=== PATIENT | male | born 1955 | race Caucasian/White ===

== ENCOUNTER 2021-04-24 18:17 | Inpatient (IN) | payer OTHER ==
[2021-04-24] MEDS ORDERED: METHYLPREDNISOLONE 125 MG INJ ONE (19:20)
[2021-04-24] MEDS ORDERED: METOPROLOL TARTRATE 5 MG/5 ML INJ IV ONE ×2 (19:20→20:17)
[2021-04-24 19:27] LABS: Albumin 2.6 g/dL (3.4-5.0); Bilirubin Direct 0.2 mg/dL (0-0.2); Bilirubin Total 0.6 mg/dL (0.2-1.0); Ferritin 320.9 ng/mL (26-388); Potassium 3.6 mmol/L (3.5-5.1); Protein, Total 6.8 g/dL (6.4-8.2); Troponin (Emerg Dept Use Only) 0.07 ng/mL (0.0-0.045)
[2021-04-24 19:45] LABS: Absolute Lymphocytes (CBC) 0.4 K/uL (0.7-4.9); Basophils % 0.2 % (0-1.3); Hematocrit 35.8 % (39.6-49.0); Lymphocytes % 11.2 % (15.3-44.8); RBC Red Blood Cell Count 5.11 M/uL (4.33-5.43)
[2021-04-24 19:49] LABS: Protime INR 1.32
--- NOTE | 2021-04-24 19:56 | RAD REPORT ---
EXAM DESCRIPTION: RAD - Chest Single View - 04/24/2021 6:45 pm CLINICAL HISTORY: DYSPNEA, COVID positive, code sepsis COMPARISON: None TECHNIQUE: AP portable chest image was obtained 04/24/2021 6:45 pm . FINDINGS: Lung volumes are low. Airspace opacification scattered throughout both lung vazquez. Patter n is consistent with moderate severity COVID-19 pneumonia. Heart and vasculature are normal. No measu rable pleural effusion and no pneumothorax. No acute bony abnormality seen. No acute aortic findings suspected. IMPRESSION: Moderate severity bilateral COVID-19 pneumonia pattern.
--- NOTE | 2021-04-24 19:59 | P.HP ---
Certification for Inpatient Patient admitted to: Inpatient With expected LOS: >2 Midnights Patient will require the following post-hospital care: None Practitioner: I am a practitioner with admitting privileges, knowledge of patient current condition, hospital course, and medical plan of care. Services: Services provided to patient in accordance with Admission requirements found in Title 42 Section 412.3 of the Code of Federal Regulations Patient History Date of Service: 04/24/21 Primary Care Provider: Out of town Reason for admission: COVID-19 pneumonia History of Present Illness: 65-year-old male with history of diabetes mellitus type 2, hypertension, atrial fibrillation on chronic anticoagulation therapy presents emergency department for shortness of breath. Patient reports testing positive for Covid on 04/20/2021, received Regeneron yesterday at stand-alone emergency department. Patient with worsening shortness of breath found to be hypoxic on room air with saturations around 85%. Patient was evaluated in the emergency department labs were significant for white blood cell count 3.7 hemoglobin 9.1 hematocrit 35.8 troponin 0 0.07 C-reactive protein 144, patient requiring approximately 5 L per nasal cannula at this time to obtain saturations greater than 90%. ED provider wishes to admit for COVID-19 pneumonia, volume overload. - Past Medical/Surgical History -: Diabetes type 2 -: Hypertension -: A. fib on chronic anticoagulation therapy -: CVA -: Neck surgery -: Gallbladder Psychosocial/ Personal History: Patient is retired, lives at home with his - Family History Mother -: Cancer Brother -: Cancer - Social History Smoking Status: Never smoker Alcohol use: No CD- Drugs: No Caffeine use: Yes Place of Residence: Home Review of Systems 10-point ROS is otherwise unremarkable General: Fever, Chills, Weakness, Malaise Respiratory: Cough, Dry, Shortness of Breath Cardiovascular: Edema Physical Examination - Physical Exam General: Alert, In no apparent distress, Oriented x3 HEENT: Atraumatic, PERRLA, Mucous membr. moist/pink, EOMI, Sclerae nonicteric Neck: Supple, 2+ carotid pulse no bruit, No LAD, Without JVD or thyroid abnormality Respiratory: Clear to auscultation bilaterally, Normal air movement Cardiovascular: Regular rate/rhythm, Edema (2+ pitting edema bilateral lower extremities), Irregular heart rate/rhythm (A. fib RVR rate 110) Capillary refill: <2 Seconds Gastrointestinal: Normal bowel sounds, No tenderness Musculoskeletal: No tenderness Integumentary: No rashes Neurological: Normal speech, Normal strength at 5/5 x4 extr, Normal tone, Normal affect - Studies Laboratory Data (last 24 hrs) 04/24/21 18:51: WBC 3.70 L, Hgb 11.1 L, Hct 35.8 L, Plt Count 129 L 04/24/21 18:51: Sodium 137, Potassium 3.6, BUN 26 H, Creatinine 1.21, Glucose 97, Total Bilirubin 0.6, AST 43 H, ALT 21, Alkaline Phosphatase 41 L, Lipase 82 Assessment and Plan - Plan Assessment: Acute hypoxic respiratory failure secondary to COVID-19 pneumonia Atrial fibrillation with rapid ventricular response on chronic anticoagulation therapy Suspected CHFunknown EF with volume overload Diabetes mellitus type 2 Hypertension History of CVA Plan: Acute hypoxic respiratory failure secondary to COVID-19 pneumonia: Continue with IV steroids, oral supplements, baricitinib if qualifies, pulmonology consult in place. Supplemental oxygen to maintain saturations greater than 90%. Atrial fibrillation with rapid ventricular response on chronic anticoagulation therapy: Continue metoprolol, Eliquis, monitor on telemetry. Cardiology consulted for assistance with suspected CHF/volume overload and A. fib. Suspected CHFunknown EF with volume overload: Continue as above, Lasix 40 g IV twice daily. Patient reports taking Lasix at home as needed but has not been taking it very often as it makes him pee too much. Patient with 2+ pitting edema at this time. Diabetes mellitus type 2: A [facility] Accu-Chek, sliding scale insulin. Hypertension: Obtain an continue home medications History of CVA: Stable continue home meds DVT PPX: Continue Eliquis Code status: Full Discharge Plan: Home Plan to discharge in: Greater than 2 days - Advance Directives Does patient have a Living Will: No Does patient have a Durable POA for Healthcare: No - Code Status/Comfort Care Code Status Assessed: Yes (Full code) Critical Care: No Time Spent Managing Pts Care (In Minutes): 55
--- NOTE | 2021-04-24 20:00 | EDPHYS ---
Physician Documentation [facility] Name: Thomas Saleh Age: 65 yrs Sex: Male : 1955 Arrival Date: 04/24/2021 Time: 18:18 Bed 2 Private MD: ED Physician Michelle Felipe HPI: 04/24 20:55 This 65 yrs old Male presents to ER via Ambulatory with complaints of covid+, kb Shortness Of Breath. 20:56 The patient has shortness of breath at rest, with light activity. Onset: The kb symptoms/episode began/occurred 1 week(s) ago. Duration: The symptoms are continuous. The patient's shortness of breath is aggravated by exertion, is alleviated by nothing. Associated signs and symptoms: Pertinent positives: non-productive cough. Severity of symptoms: At their worst the symptoms were moderate in the emergency department the symptoms are unchanged. The patient has not experienced similar symptoms in the past. The patient has been recently seen by a physician:. Pt reports cough and shortness of breath started 7 days ago. Tested positive for covid 5 days ago, had regeneron infusion yesterday morning. States shortness of breath got worse today. Pt went to [place] today and was told to sign out there and come here for admission . Historical: - Allergies: 18:32 No Known Allergies; ll1 - Home Meds: 21:27 ivermectin 3 mg oral tab 4 tabs daily [Active]; Eliquis 5 mg oral tab 1 tab 2 times per df1 day [Active]; metformin 1,000 mg Oral tab 1 tab 2 times per day [Active]; amiloride 5 mg oral tab 2 tabs twice a day [Active]; metoprolol tartrate 100 mg Oral tab 1 tab 2 times per day [Active]; 21:29 hydrochlorothiazide 25 mg Oral tab 1 tab once daily [Active]; glimepiride 2 mg Oral tab df1 1 tab once daily [Active]; terazosin 10 mg oral cap 1 cap once daily [Active]; aspirin 81 mg Oral tab 81 mg daily [Active]; Synthroid 50 mcg Oral tab 1 tab once daily [Active]; Lasix 20 mg Oral tab 1 tab once daily [Active]; Protonix 40 mg Oral TbEC 1 tab once daily [Active]; - PMHx: 21:46 Hypertensive disorder; afib; Diabetes mellitus; stroke; gerd; df1 - PSHx: 18:32 Cholecystectomy; ll1 21:46 fusion of C 5-6-7; df1 - Immunization history:: Client reports receiving the 2nd dose of the Covid vaccine. - Social history:: Smoking status: Patient denies any tobacco usage or history of. ROS: 20:55 Constitutional: Negative for fever, chills, and weight loss. kb 20:55 Respiratory: Positive for cough, dyspnea on exertion, shortness of breath. 20:55 All other systems are negative. Exam: 18:53 Constitutional: This is a well developed, well nourished patient who is awake, alert, kb and in no acute distress. Head/Face: Normocephalic, atraumatic. ENT: Moist Mucous membranes Abdomen/GI: Soft, non-tender. No distention Skin: Warm, dry with normal turgor. Normal color. MS/ Extremity: Pulses equal, no cyanosis. Neurovascular intact. Full, normal range of motion. Neuro: Awake and alert, GCS 15, oriented to person, place, time, and situation. Moves all extremities. Normal gait. Psych: Awake, alert, with orientation to person, place and time. Behavior, mood, and affect are within normal limits. 18:53 Cardiovascular: Rhythm: irregularly irregular. 18:53 ECG was reviewed by the Attending Physician. 18:53 Respiratory: mild respiratory distress is noted, Respirations: labored breathing, that kb is mild, Breath sounds: wheezing: expiratory that is mild, is scattered. Vital Signs: 18:32 BP 150 / 87; Pulse 107; Resp 28; Temp 100.1(O); Pulse Ox 85% ; ll1 18:41 Weight 117.93 kg (R); ap3 19:00 BP 150 / 95; Pulse 102; Resp 31; Pulse Ox 88% on 4 lpm NC; iw 21:31 BP 138 / 73; Pulse 95; Resp 20; Pulse Ox 94% on 4 lpm NC; df1 22:40 BP 146 / 82; Pulse 106; Resp 22; Pulse Ox 94% on 4 lpm NC; df1 MDM: 18:34 Patient medically screened. kb 19:58 Data reviewed: vital signs, nurses notes. Data interpreted: Pulse oximetry: on room air kb is 85 %. Interpretation: hypoxia. Plan: O2 by NC applied. Counseling: I had a detailed discussion with the patient and/or guardian regarding: the historical points, exam findings, and any diagnostic results supporting the discharge/admit diagnosis, lab results, radiology results, the need for further work-up and treatment in the hospital. Physician consultation: Amos Zhoulashawn LUCAS was contacted at 19:58, regarding admission, to the telemetry unit. patient's condition, and will see patient in ED, shortly. 04/24 18:34 Order name: BMP kb 04/24 18:34 Order name: Blood Culture Adult (2) kb 04/24 18:34 Order name: C-Reactive Protein kb 04/24 18:34 Order name: CBC with Diff kb 04/24 18:34 Order name: D-Dimer kb 04/24 18:34 Order name: Ferritin kb 04/24 18:34 Order name: LFT's kb 04/24 18:34 Order name: Lactate; Complete Time: 19:23 kb 04/24 18:34 Order name: Lipase; Complete Time: 19:29 kb 04/24 18:34 Order name: PT-INR; Complete Time: 19:57 kb 04/24 18:34 Order name: Procalcitonin; Complete Time: 20:07 kb 04/24 18:34 Order name: Ptt, Activated; Complete Time: 19:57 kb 04/24 18:34 Order name: Troponin (emerg Dept Use Only); Complete Time: 19:29 kb 04/24 18:35 Order name: Basic Metabolic Panel; Complete Time: 19:29 EDMS 04/24 18:34 Order name: CXR XRAY; Complete Time: 19:57 kb 04/24 18:34 Order name: EKG; Complete Time: 18:35 kb 04/24 18:34 Order name: Cardiac monitoring; Complete Time: 18:50 kb 04/24 18:35 Order name: Blood Culture EDMS 04/24 18:35 Order name: C-Reactive Protein; Complete Time: 19:29 EDMS 04/24 18:35 Order name: CBC with Automated Diff; Complete Time: 19:57 EDMS 04/24 18:35 Order name: D-Dimer; Complete Time: 19:57 EDMS 04/24 18:35 Order name: Ferritin; Complete Time: 19:29 EDMS 04/24 18:35 Order name: Liver (Hepatic) Function; Complete Time: 19:29 EDMS 04/24 19:07 Order name: COVID-19 SARS RT PCR (Document "Date of Onset" if Symptomatic); Complete tt3 Time: 22:20 04/24 19:58 Order name: BNP kb 04/24 20:33 Order name: NT PRO-BNP; Complete Time: 20:37 EDMS 04/24 18:34 Order name: Droplet/Contact Precautions; Complete Time: 18:51 kb 04/24 18:34 Order name: EKG - Nurse/Tech; Complete Time: 18:51 kb 04/24 18:34 Order name: IV Start; Complete Time: 18:52 kb 04/24 18:34 Order name: Labs collected and sent; Complete Time: 18:52 kb 04/24 18:34 Order name: O2 Per Protocol; Complete Time: 18:51 kb 04/24 18:34 Order name: O2 Sat Monitoring; Complete Time: 18:51 kb EC:53 Rate is 137 beats/min. Rhythm is irregularly irregular. QRS [place] is Normal. QRS kb interval is normal at 82 msec. QT interval is normal at 294 msec. Administered Medications: 18:49 CANCELLED (Physician Discretion): Lovenox (enoxaparin) 1 mg/kg Sub-Q once kb 18:59 Drug: SOLU-Medrol (methylPrednisoLONE) 125 mg Route: IVP; Site: left antecubital; iw 21:55 Follow up: Response: No adverse reaction df1 18:59 Drug: Lopressor (metoprolol) 5 mg Route: IVP; Site: left antecubital; iw 19:57 Drug: Lopressor (metoprolol) 5 mg Route: IVP; Site: right antecubital; df1 21:54 Follow up: Response: Blood pressure is lowered df1 19:57 Drug: Lasix (furosemide) 40 mg Route: IVP; Site: right antecubital; df1 21:54 Follow up: Response: Other df1 Disposition Summary: 04/24/21 19:59 Hospitalization Ordered Hospitalization Status: Inpatient Admission kb Provider: Chris Villegas Location: Telemetry/MedSurg (Inpatient) kb Condition: Stable kb Problem: new kb Symptoms: are unchanged kb Bed/Room Type: Standard Room Assignment: 406(04/24/21 22:18) cg Diagnosis - Coronavirus infection, unspecified kb - Hypoxia kb Forms: - Medication Reconciliation Form kb - SBAR form kb Addendum: 04/27/2021 22:59 Co-signature as Attending Physician, Michelle Felipe MD PA/COMMUNITY RECREATION PROGRAMMER's history reviewed, m a2 patient interviewed, and examined. I agree with assessment and care plan and confirm the diagnosis (es) above. Signatures: Dispatcher [employer] EDSri Quiroz, BATCHMAKER-C BATCHMAKER-Stub Paula Foley, RN RN iw Amos Bolanos BATCHMAKER-C BATCHMAKER-Ameya1 Tri Hassan, TANYA RN Michelle Toledo MD MD ma2 Jose Roberto Bell RN RN 1 Starr Winchester df1 Corrections: (The following items were deleted from the chart) 04/24 18:49 18:47 Lovenox (enoxaparin) 1 mg/kg Sub-Q once ordered. kb kb :53 18:32 PMHx: None; ll1 df1 : 18:32 PSHx: neck SX; 1 df1 22:18 19:59 kb cg
--- NOTE | 2021-04-24 20:00 | ER ---
Nurse's Notes [facility] Name: Thomas Saleh Age: 65 yrs Sex: Male : 1955 Arrival Date: 04/24/2021 Time: 18:18 Bed 2 Private MD: Diagnosis: Coronavirus infection, unspecified;Hypoxia Presentation: 04/24 18:32 Chief complaint: Patient states: SOB, covid positive, symptoms for 1 week. Had ll1 Regeneron infusion yesterday. O2 sat 78-81% RA at [place] earlier today. + fever. Coronavirus screen: Vaccine status: Patient reports receiving the 2nd dose of the covid vaccine. Client denies travel out of the [place] in the last 14 days. congestion, cough unrelated to allergies, difficulty breathing, fatigue, fever, shortness of breath, Client presents with at least one sign or symptom that may indicate coronavirus-19. Standard/surgical mask placed on the client. Ebola Screen: Patient denies travel to an Ebola-affected area in the 21 days before illness onset. Initial Sepsis Screen: Does the patient meet any 2 criteria? RR > 20 per min. HR > 90 bpm. Yes Does the patient have a suspected source of infection? Yes: Productive cough/pneumonia. Risk Assessment: Do you want to hurt yourself or someone else? Patient reports no desire to harm self or others. Onset of symptoms was April 17, 2021. 18:32 Method Of Arrival: Ambulatory 1 18:32 Acuity: CHILO 2 ll1 Triage Assessment: 22:42 General: Appears uncomfortable, Behavior is calm, cooperative. Respiratory: Reports df1 shortness of breath Onset: The symptoms/episode began/occurred gradually, the patient has moderate shortness of breath. Historical: - Allergies: 18:32 No Known Allergies; ll1 - Home Meds: 21:27 ivermectin 3 mg oral tab 4 tabs daily [Active]; Eliquis 5 mg oral tab 1 tab 2 times per df1 day [Active]; metformin 1,000 mg Oral tab 1 tab 2 times per day [Active]; amiloride 5 mg oral tab 2 tabs twice a day [Active]; metoprolol tartrate 100 mg Oral tab 1 tab 2 times per day [Active]; 21:29 hydrochlorothiazide 25 mg Oral tab 1 tab once daily [Active]; glimepiride 2 mg Oral tab df1 1 tab once daily [Active]; terazosin 10 mg oral cap 1 cap once daily [Active]; aspirin 81 mg Oral tab 81 mg daily [Active]; Synthroid 50 mcg Oral tab 1 tab once daily [Active]; Lasix 20 mg Oral tab 1 tab once daily [Active]; Protonix 40 mg Oral TbEC 1 tab once daily [Active]; - PMHx: 21:46 Hypertensive disorder; afib; Diabetes mellitus; stroke; gerd; df1 - PSHx: 18:32 Cholecystectomy; ll1 21:46 fusion of C 5-6-7; df1 - Immunization history:: Client reports receiving the 2nd dose of the Covid vaccine. - Social history:: Smoking status: Patient denies any tobacco usage or history of. Screenin:41 Abuse screen: Denies threats or abuse. Nutritional screening: No deficits noted. df1 Tuberculosis screening: No symptoms or risk factors identified. Fall Risk None identified. Assessment: 22:41 Pain: Denies pain. Cardiovascular: Rhythm is regular. Respiratory: Airway is patent df1 Respiratory effort is even, labored, Respiratory pattern is regular, symmetrical, Breath sounds with rhonchi bilaterally. Vital Signs: 18:32 BP 150 / 87; Pulse 107; Resp 28; Temp 100.1(O); Pulse Ox 85% ; ll1 18:41 Weight 117.93 kg (R); ap3 19:00 BP 150 / 95; Pulse 102; Resp 31; Pulse Ox 88% on 4 lpm NC; iw 21:31 BP 138 / 73; Pulse 95; Resp 20; Pulse Ox 94% on 4 lpm NC; df1 22:40 BP 146 / 82; Pulse 106; Resp 22; Pulse Ox 94% on 4 lpm NC; df1 ED Course: 18:18 Patient arrived in ED. as 18:30 Arm band placed on Patient placed in an exam room, on a stretcher. ll1 18:32 Patient has correct armband on for positive identification. Placed in gown. Bed in low mh5 position. Call light in reach. Side rails up X 1. Adult w/ patient. Warm blanket given. property assessment monitor on. Pulse ox on. NIBP on. 18:34 Sri Freedman FNP-C is PHCP. kb 18:34 Michelle Felipe MD is Attending Physician. kb 18:34 Triage completed. ll1 18:45 CXR XRAY In Process Unspecified. EDMS 18:45 Inserted saline lock: 20 gauge in left antecubital area, using aseptic technique. Blood iw collected. 19:00 Initial lab(s) drawn, by computer lab para professional, sent to lab. EKG done. 5 19:00 CBC with Automated Diff Sent. mh5 19:00 D-Dimer Sent. 5 19:00 Ferritin Sent. mh5 19:01 Liver (Hepatic) Function Sent. 5 19:01 Blood Culture Sent. 5 19:01 C-Reactive Protein Sent. mh5 19:01 Basic Metabolic Panel Sent. 5 19:01 BMP Sent. 5 19:01 Blood Culture Adult (2) Sent. 5 19:01 C-Reactive Protein Sent. 5 19:01 CBC with Diff Sent. 5 19:01 D-Dimer Sent. 5 19:01 Ferritin Sent. 5 19:01 LFT's Sent. 5 19:01 Lactate Sent. 5 19:01 Lipase Sent. 5 19:01 PT-INR Sent. 5 19:01 Procalcitonin Sent. 5 19:01 Ptt, Activated Sent. 5 19:02 Troponin (emerg Dept Use Only) Sent. mh5 19:22 Angie Barraza, TANYA is Primary Nurse. ap3 19:30 Admitting physician to see patient. dc2 19:49 Starr Winchester is Primary Nurse. df1 19:49 COVID-19 SARS RT PCR (Document "Date of Onset" if Symptomatic) Sent. df1 19:59 Chris Villegas MD is Hospitalizing Provider. kb 20:06 BNP Sent. df1 22:42 No provider procedures requiring assistance completed. Inserted saline lock: 20 gauge df1 in left antecubital area, using aseptic technique. 04/25 00:15 Patient admitted, IV remains in place. df1 Administered Medications: 04/24 18:49 CANCELLED (Physician Discretion): Lovenox (enoxaparin) 1 mg/kg Sub-Q once kb 18:59 Drug: SOLU-Medrol (methylPrednisoLONE) 125 mg Route: IVP; Site: left antecubital; iw 21:55 Follow up: Response: No adverse reaction df1 18:59 Drug: Lopressor (metoprolol) 5 mg Route: IVP; Site: left antecubital; iw 19:57 Drug: Lopressor (metoprolol) 5 mg Route: IVP; Site: right antecubital; df1 21:54 Follow up: Response: Blood pressure is lowered df1 19:57 Drug: Lasix (furosemide) 40 mg Route: IVP; Site: right antecubital; df1 21:54 Follow up: Response: Other df1 Output: 21:53 Urine: 1100ml (Voided); Total: 1100ml. df1 Outcome: 19:59 Decision to Hospitalize by Provider. kb 04/25 00:15 Admitted to Tele accompanied by tech. df1 Condition: stable Instructed on the need for admit. 00:16 Patient left the ED. df1 Signatures: Dispatcher [employer] EDMS Sri Freedman, BUDGET COORDINATOR-C BUDGET COORDINATOR-Jennifer Lopez Irene, RN RN Lupe Castillo 5 Angie Barraza RN RN ap3 Jose Roberto Bell RN RN ll1 Starr Winchester df1 Gale Mckeon RN RN dc2 Corrections: (The following items were deleted from the chart) 04/24 18:37 18:32 Resp 28bpm; Pulse Ox 85%; ll1 ll1 21:53 18:32 PMHx: None; ll1 df1 21:53 18:32 PSHx: neck SX; ll1 df1
[2021-04-24] MEDS ORDERED: FUROSEMIDE 20 MG/ 2ML VIAL ONE (20:17)
[2021-04-25] MEDS: ASCORBIC ACID 500 MG TABLET PO SCH ×2 (01:22→09:04)
[2021-04-25] MEDS: METOPROLOL TAR 50 MG TAB PO SCH ×3 (01:22→21:05)
[2021-04-25] MEDS: INSULIN -REGULAR HUMAN 50 UNIT/0.5 ML ML SQ SCH ×5 (01:22→21:00)
[2021-04-25] MEDS ORDERED: MELATONIN 5 MG TABLET PO PRN (01:22)
[2021-04-25] MEDS: ATORVASTATIN 40 MG TAB PO SCH ×2 (01:22→21:05)
[2021-04-25 01:34] VITALS: BMI 35.2
[2021-04-25] MEDS: APIXABAN 5 MG TABLET PO SCH ×3 (02:05→21:04)
[2021-04-25 02:52] LABS: Absolute Lymphocytes (CBC) 0.2 K/uL (0.7-4.9); Basophils % 0.1 % (0-1.3); Hematocrit 35.5 % (39.6-49.0); Lymphocytes % 5.4 % (15.3-44.8); MPV 8.5 fL (7.6-11.3); RBC Red Blood Cell Count 5.04 M/uL (4.33-5.43)
[2021-04-25 03:23] LABS: Albumin 2.6 g/dL (3.4-5.0); Bilirubin Total 0.6 mg/dL (0.2-1.0); Ferritin 361.3 ng/mL (26-388); Protein, Total 6.7 g/dL (6.4-8.2); Thyroid Stimulating Hormone 2.59 uIU/mL (0.360-3.740)
[2021-04-25] MEDS ORDERED: METHYLPREDNISOLONE 40 MG INJ IV SCH (04:00)
--- NOTE | 2021-04-25 06:17 | P.PN ---
Date of Service: 04/25/21 Subjective: No acute events overnight. Nasal cannula fell off patient's face, found to be hypoxic 80%. Placed on 5 L nasal cannula, and slowly oxygen saturation increased to 90%. Otherwise patient states he is feeling better, breathing more comfortably, no diarrhea, no nausea/no vomiting Appetite slightly increased, states he is hungry this morning Has not ambulated much, yet ROS: 10 point ROS as noted above, otherwise negative Physical exam GEN: Alert, oriented, NAD HEENT: Normal conjunctiva, sclera anicteric CV: Irregularly irregular rhythm, heart rate: 90s, 12+ edema bilateral lower extremities to knees Pulm: Mild labored respirations at rest on 4 L nasal cannula ABD: Soft, nontender, nondistended MSK: No joint tenderness/swelling Integumentary: No rashes/lesions Neuro: Normal speech, normal affect Problem List Acute hypoxic respiratory failure secondary to COVID-19 pneumonia Atrial fibrillation (chronic) with rapid ventricular response on chronic anticoagulation therapy Suspected CHFunknown EF with volume overload Diabetes mellitus type 2, [id number]-[id number] Hypertension History of CVA Continue IV steroids, vitamin supplementation, wean oxygen as tolerated Pulmonology consulted CRP significantly elevated, however not requiring high flow nasal cannula, does not qualify for baricitinib Patient reports feeling better, on 5 L nasal cannula A. fib with rate control, continue patient's home metoprolol and Eliquis Patient with some volume overload, has not been taking his Lasix at home, and has had increased lower extremity edema Received 40 mg IV Lasix, can switch to p.o. Patient with DM2, noncompliant with diet, states A1c is in the 8s. [id number]. Will restart Metformin as patient appears stable, will insulin sliding scale Suspect patient will have further hyperglycemia induced by steroids, will adjust insulin temporarily as needed Confirm and continue home medications for hypertension Patient with microcytic anemia, he had low his report no prior knowledge/diagnoses. Iron studies ordered -revealed significantly depleted iron levels. We will give IV iron. Patient has been on Eliquis and aspirin 81 mg for a few years, which family states is under instruction by his physician. Over the last week or so, possibly longer, patient has been taking full dose aspirin along with Eliquis recommend patient have formal GI f/u as outpateint and get a colonscopy to r/o occult GI bleed VTE: eliquis Code: full Dispo: Anticipate discharge home in 1-2 days. Patient will need home oxygen Patient with moderate Covid pneumonia, and high risk given his comorbidities Time Spent Managing Pts Care (In Minutes): 35
[2021-04-25] MEDS ORDERED: FUROSEMIDE 40 MG/4 ML VIAL IV SCH (09:00)
[2021-04-25] MEDS: ASPIRIN EC 81 MG TAB PO SCH (09:04)
[2021-04-25] MEDS: VITAMIN D 1000 UNIT TAB PO SCH (09:04)
[2021-04-25] MEDS: ZINC SULFATE 220 MG CAP PO SCH (09:05)
[2021-04-25] MEDS: THIAMINE HCL 100 MG TABLET PO SCH (09:05)
[2021-04-25] MEDS: BARICITINIB 2 MG TABLET PO SCH (09:06)
[2021-04-25] MEDS: AMILORIDE HCL 5 MG TABLET PO SCH ×2 (10:21→21:00)
--- NOTE | 2021-04-25 11:06 | P.CNS ---
Date of Consult: 04/25/21 Reason for Consult: Coronavirus pneumonia Primary Care Provider: Out of town Chief Complaint: COVID-19 pneumonia History of Present Illness: Patient is 65 years of age has been sick for the past week admitted with worsening dyspnea respiratory failure and coronavirus pneumonia patient has metabolic syndrome Allergies No Known Allergies Allergy (Verified 04/25/21 01:22) Home Medications: Amiloride HCl 5 mg PO BID 04/25/21 Apixaban [Eliquis] 5 mg PO BID 04/25/21 Aspirin [Aspirin EC 325 MG] 325 mg PO DAILY 04/25/21 Furosemide [Lasix] 20 mg PO DAILY 04/25/21 Glimepiride [Amaryl] 2 mg PO DAILY 04/25/21 Ivermectin 3 mg PO DAILY 04/25/21 Levothyroxine Sodium [Synthroid] 50 mcg PO DAILY 04/25/21 Metformin HCl 1,000 mg PO BID 04/25/21 Metoprolol Tartrate 100 mg PO BID 04/25/21 Pantoprazole Sodium [Protonix] 40 mg PO DAILY 04/25/21 Terazosin HCl 10 mg PO DAILY 04/25/21 hydroCHLOROthiazide [Hydrochlorothiazide] 25 mg PO DAILY 04/25/21 - Past Medical/Surgical History -: Diabetes type 2 -: Hypertension -: A. fib on chronic anticoagulation therapy -: CVA -: Neck surgery -: Gallbladder Psychosocial/ Personal History: Patient is retired, lives at home with his - Family History Mother Medical History: Cancer Brother Medical History: Cancer - Social History Alcohol use: No CD- Drugs: No Caffeine use: Yes Place of Residence: Home Review of Systems 10-point ROS is otherwise unremarkable General: Weakness Respiratory: Shortness of Breath Physical Examination Temp Pulse Resp BP Pulse Ox 96.9 F 98 H 18 131/84 90 L 04/25/21 08:00 04/25/21 09:06 04/25/21 08:00 04/25/21 09:06 04/25/21 08:00 General: Alert HEENT: Atraumatic Neck: Supple Respiratory: Clear to auscultation bilaterally, Friction rub Cardiovascular: Regular rate/rhythm Laboratory Data (last 24 hrs) 04/24/21 18:51: PT 15.2 H, INR 1.32, APTT 35.4 04/24/21 18:51: WBC 3.70 L, Hgb 11.1 L, Hct 35.8 L, Plt Count 129 L 04/24/21 18:51: Sodium 137, Potassium 3.6, BUN 26 H, Creatinine 1.21, Glucose 97, Total Bilirubin 0.6, AST 43 H, ALT 21, Alkaline Phosphatase 41 L, Lipase 82 - Problems (1) 2019 novel coronavirus-infected pneumonia (NCIP) Current Visit: Yes Status: Acute Plan: Patient is 65 years of age admitted with coronavirus pneumonia patient has a mild microcytic anemia labs reviewed chest x-ray consistent with coronavirus pneumonia patient is not vaccinated he did receive antibiotic infusion patient is on 5 L of nasal nasal cannula oxygen with a sat around 90% possible discharge home tomorrow possible discharge tomorrow
[2021-04-25] MEDS: FUROSEMIDE 20 MG TABLET PO SCH (12:31)
[2021-04-25] MEDS: METHYLPREDNISOLONE 125 MG INJ IV SCH (12:35)
[2021-04-25] MEDS: SOD FERRIC GLUC COMPLX/SUCROSE 125 MG in NA CHLORIDE 0.9% 100 ML IV SCH (13:58)
[2021-04-25] MEDS ORDERED: SOD FERRIC GLUC COMPLX/SUCROSE 125 MG in NA CHLORIDE 0.9% 100 ML IV SCH (16:00)
[2021-04-25] MEDS: METFORMIN HCL 500 MG TAB PO SCH (17:22)
[2021-04-25] MEDS ORDERED: D50W 25 GM/50 ML SYRINGE IV PRN (17:23)
[2021-04-25] MEDS ORDERED: GLUCAGON 1 MG/VIAL IM PRN (17:23)
[2021-04-25] MEDS ORDERED: INSULIN -REGULAR HUMAN 50 UNIT/0.5 ML ML IV ONE ×2 (17:26→23:00)
[2021-04-25] MEDS: INSULIN GLARGINE 100 UNITS/ML SQ SCH (21:00)
[2021-04-25] MEDS ORDERED: INSULIN GLARGINE 100 UNITS/ML SQ SCH (21:00)
[2021-04-26] MEDS: METHYLPREDNISOLONE 125 MG INJ IV SCH ×2 (00:24→11:52)
[2021-04-26] MEDS: ACETAMINOPHEN 500 MG TAB PO PRN ×2 (00:44→07:29)
[2021-04-26 05:43] LABS: Absolute Lymphocytes (CBC) 0.3 K/uL (0.7-4.9); Basophils % 0.1 % (0-1.3); Hematocrit 35.4 % (39.6-49.0); Lymphocytes % 5.6 % (15.3-44.8); MPV 8.4 fL (7.6-11.3); RBC Red Blood Cell Count 5.04 M/uL (4.33-5.43)
[2021-04-26 05:52] LABS: Urine Appearance CLEAR (Clear); Urine Bilirubin NEGATIVE (Negative); Urine Blood TRACE (Negative); Urine Color YELLOW (Yellow); Urine Glucose 1+ (Negative); Urine Protein 1+ (Negative); Urine Specific Gravity 1.025 (1.005-1.030)
[2021-04-26 06:05] LABS: Albumin 2.3 g/dL (3.4-5.0); Bilirubin Total 0.4 mg/dL (0.2-1.0); Ferritin 619.5 ng/mL (26-388); Magnesium 2.3 mg/dL (1.8-2.4); Potassium 3.8 mmol/L (3.5-5.1); Protein, Total 6.4 g/dL (6.4-8.2)
[2021-04-26 06:10] LABS: Urine Microscopic Reflex ORDER UMIC
[2021-04-26 06:11] LABS: Urine Amorphous Sediment 1+ /HPF (NONE SEEN); Urine Bacteria >50 /HPF (NONE SEEN); Urine Coarse Granular Casts FEW /LPF (NONE SEEN); Urine Mucus 2+ /HPF (NONE SEEN); Urine RBC <5 /HPF (NONE SEEN)
[2021-04-26 06:49] LABS: Anisocytosis 2+; Blood Morphology Comment NOTED (NOT SEEN); Platelet Estimate ADEQ; Toxic Granulation 1+; White Blood Cell Scan OK (OK)
[2021-04-26] MEDS: ASPIRIN EC 81 MG TAB PO SCH (08:23)
[2021-04-26] MEDS: FUROSEMIDE 20 MG TABLET PO SCH ×4 (08:26→09:15)
[2021-04-26] MEDS: THIAMINE HCL 100 MG TABLET PO SCH (08:26)
[2021-04-26] MEDS: VITAMIN D 1000 UNIT TAB PO SCH (08:27)
[2021-04-26] MEDS: METFORMIN HCL 500 MG TAB PO SCH ×2 (08:27→17:06)
[2021-04-26] MEDS: ZINC SULFATE 220 MG CAP PO SCH (08:27)
[2021-04-26] MEDS: APIXABAN 5 MG TABLET PO SCH ×2 (08:27→20:50)
[2021-04-26] MEDS: METOPROLOL TAR 50 MG TAB PO SCH ×2 (08:27→20:47)
[2021-04-26] MEDS: INSULIN -REGULAR HUMAN 50 UNIT/0.5 ML ML SQ SCH ×4 (08:28→20:51)
[2021-04-26] MEDS ORDERED: TRAMADOL HCL 50 MG TAB PO PRN (08:34)
[2021-04-26] MEDS ORDERED: POTASSIUM CL SA 10 MEQ TAB PO ONE (09:00)
[2021-04-26] MEDS: BARICITINIB 2 MG TABLET PO SCH (09:13)
[2021-04-26] MEDS: SOD FERRIC GLUC COMPLX/SUCROSE 125 MG in NA CHLORIDE 0.9% 100 ML IV SCH (09:14)
[2021-04-26] MEDS: AMILORIDE HCL 5 MG TABLET PO SCH ×2 (09:15→20:46)
--- NOTE | 2021-04-26 11:58 | P.PN ---
Date of Service: 04/26/21 Subjective: No acute events overnight. patient noted to desat while being down to 85% on 4 L. Bumped up to 5 L Patient reports prior diagnosis sleep apnea, does not wear CPAP He otherwise has been doing well, has not ambulated much States he feels his breathing is improving Heart rate increased this morning up to [id number] Reports some rib soreness from coughing ROS: 10 point ROS as noted above, otherwise negative Physical exam GEN: Alert, oriented, NAD HEENT: Normal conjunctiva, sclera anicteric CV: Irregularly irregular rhythm, heart rate: 110-120s, 2+ edema bilateral lower extremities to mid tibial height Pulm: Mild labored respirations at rest on 5 L nasal cannula ABD: Soft, nontender, nondistended MSK: No joint tenderness/swelling Integumentary: No rashes/lesions Neuro: Normal speech, normal affect Problem List Acute hypoxic respiratory failure secondary to COVID-19 pneumonia Atrial fibrillation (chronic) with rapid ventricular response on chronic anticoagulation therapy Suspected CHFunknown EF with volume overload Diabetes mellitus type 2, [id number]-[id number] Hypertension History of CVA Continue IV steroids, vitamin supplementation, wean oxygen as tolerated Pulmonology consulted CRP significantly elevated, however not requiring high flow nasal cannula, does not qualify for baricitinib Patient reports feeling better, on 5 L nasal cannula A. fib, continue patient's home metoprolol and Eliquis; will monitor this AM, may need to increase dose Patient with some volume overload, has not been taking his Lasix at home, and has had increased lower extremity edema Received 40 mg IV Lasix yesterday, continue with 40 mg daily PO Patient with DM2, noncompliant with diet, states A1c is in the 8s. Ipi-ylfiegw-wngeiwffm. Restart Metformin and glimepiride. Patient started on insulin yesterday. Steroids are definitely contributing to hyperglycemia Confirm and continue home medications for hypertension Patient with microcytic anemia, he had low his report no prior knowledge/diagnoses. Iron studies ordered -revealed significantly depleted iron levels. Continue IV iron. Patient has been on Eliquis and aspirin 81 mg for a few years, which family states is under instruction by his physician. Over the last week or so, possibly longer, patient has been taking full dose aspirin along with Eliquis recommend patient have formal GI f/u as outpateint and get a colonscopy to r/o occult GI bleed VTE: eliquis Code: full Dispo: Anticipate discharge home tomorrow, if continues to improve. Will need home oxygen Patient with moderate Covid pneumonia, and high risk given his comorbidities. With intermittent A. fib with RVR Time Spent Managing Pts Care (In Minutes): 35
[2021-04-26] MEDS ORDERED: GLIMEPIRIDE 2 MG TABLET PO ONE (12:00)
[2021-04-26] MEDS ORDERED: HYDROCODONE/APAP 5/325 MG TAB PO PRN (12:53)
[2021-04-26] MEDS ORDERED: MORPHINE 2 MG/ML SYR IV PRN (12:53)
--- NOTE | 2021-04-26 15:48 | RAD REPORT ---
EXAM DESCRIPTION: RAD - Chest Single View - 04/26/2021 3:41 pm CLINICAL HISTORY: f/u COVID, pain under L scapula COMPARISON: April 24 TECHNIQUE: AP portable chest image was obtained 04/26/2021 3:41 pm . FINDINGS: Lung volumes are low. Left greater than right airspace opacification is present. Left find ings are slightly worse but this may be due to a more shallow inspiratory effort. Heart and vasculatu re are normal. No new or enlarging pleural effusion. No pneumothorax confirmed. There do appear to be lung markings that extend to the apex on the left. No acute bony abnormality seen. No acute aortic f indings suspected. IMPRESSION: Moderate severity [id number]-gvrlsmn-[id number]-right COVID-19 pneumonia. Left-side opacification appears worse than April 24 imaging. This could be shallow inspiration roberto fact or true progression. Continued follow-up is needed.
--- NOTE | 2021-04-26 17:10 | CON ---
Date of Consultation: 04/25/2021 The patient was admitted by Dr. Vilelgas with COVID pneumonia on 04/24/2021. I saw the patient on 04/25. Reason For Consultation: Chronic atrial fibrillation. History Of Present Illness: Mr. Saleh is a 65-year-old white male admitted with COVID, noted to be in atrial fibrillation; however, his atrial fibrillation according to him is chronic. He has no symp toms with his atrial fibrillation and he has been taking Eliquis for that. He also takes aspirin. Dimitrios teague has hypertension for which he takes amiloride as chronic diastolic congestive heart failure for whi ch he takes Lasix. He has diabetes for which he takes Amaryl. Hypothyroidism, he is on Synthroid. He is also on metformin, metoprolol, Protonix for gastroesophageal reflux disease, hydrochlorothiazid e, and terazosin. He came in with COVID pneumonia and shortness of breath, and has already done bett er on present treatment, which does include ivermectin. Past Medical History: As stated above, also history of hypertension, diabetes, stroke, gastroesophag eal reflux disease as well as cholecystectomy and fusion of the C5, C6, C7. Medications: Listed earlier. Allergies: NONE. Review of Systems: Negative. Social History: Negative. Family History: Noncontributory. Physical Examination: Vital Signs: Stable. He was afebrile. HEENT: Negative. Neck: Supple with no bruit. Chest: Reveals rales both bases. Cardiac: Revealed atrial fibrillation. No murmurs, gallops, or rubs. Abdomen: Obese, but benign. Extremities: Revealed no clubbing, cyanosis, or edema. Diagnostic Data: Chest x-ray showed COVID pneumonia, moderate severity. Rest of his blood work was fairly unremarkable. His glucose was elevated over 500. Of course, he had elevated troponin, C-reac tive protein, and BNP and all that is secondary to his COVID. His Procalcitonin was 0.1. Impression And Plan: 1.Chronic atrial fibrillation, rate controlled. No symptoms. Continue metoprolol and Eliquis. 2.COVID pneumonia, moderate severity. He is on appropriate therapy including thiamin, zinc, and ant ibiotics, steroids. His diabetes is very poorly controlled. He is on insulin. He is on metformin. I will leave that up to Dr. Villegas. His other problems include hypertension, chronic diastolic conge stive heart failure, hypothyroidism, gastroesophageal reflux disease all that is stable. I am going to curious why he is on hydrochlorothiazide and Lasix. I think when he goes home, he should be on on e of them, not both, preferably the Lasix. If he stays in the hospital, we will get an echocardiogra m on him on Tuesday. Otherwise, like stated earlier from a cardiac standpoint, he is stable and asymp tomatic. 3.Chronic atrial fibrillation. We will continue beta-blockers and Eliquis. No need for further car diac workup at this point. Mr. Saleh is a very active man. He is a rancher in [facility] and he c an certainly go back to his normal activities when he is done. PACO/VA Voice ID: [id number] Report ID: [id number]
[2021-04-26] MEDS: INSULIN GLARGINE 100 UNITS/ML SQ SCH (20:50)
[2021-04-26] MEDS: ATORVASTATIN 40 MG TAB PO SCH (20:50)
[2021-04-27] MEDS: METHYLPREDNISOLONE 125 MG INJ IV SCH ×3 (00:15→23:56)
[2021-04-27 05:18] LABS: Absolute Lymphocytes (CBC) 0.3 K/uL (0.7-4.9); Basophils % 0.1 % (0-1.3); Hematocrit 35.9 % (39.6-49.0); MPV 8.3 fL (7.6-11.3); RBC Red Blood Cell Count 5.09 M/uL (4.33-5.43)
[2021-04-27 05:57] LABS: Albumin 2.2 g/dL (3.4-5.0); Bilirubin Total 0.5 mg/dL (0.2-1.0); Ferritin 758.2 ng/mL (26-388); Magnesium 2.6 mg/dL (1.8-2.4); Potassium 4.4 mmol/L (3.5-5.1); Protein, Total 6.5 g/dL (6.4-8.2)
--- NOTE | 2021-04-27 06:02 | P.PN ---
Date of Service: 04/27/21 Subjective: No acute events overnight. Patient states he feels about the same, has not ambulated much around the room Slightly more hypoxic, bumped up to 6 L nasal cannula this morning on rounds Continues with cough, continues with chest soreness from coughing No new complaints Chest x-ray appears slightly worse, inflammatory markers worsening Lower extremity swelling improving ROS: 10 point ROS as noted above, otherwise negative Physical exam GEN: Alert, oriented, NAD HEENT: Normal conjunctiva, sclera anicteric CV: Irregularly irregular rhythm, heart rate: 100-110, 2+ edema bilateral lower extremities to mid tibial height Pulm: Mild labored respirations at rest on 6 L nasal cannula ABD: Soft, nontender, nondistended MSK: No joint tenderness/swelling Integumentary: No rashes/lesions Neuro: Normal speech, normal affect Problem List Acute hypoxic respiratory failure secondary to COVID-19 pneumonia Atrial fibrillation (chronic) with rapid ventricular response on chronic anticoagulation therapy Suspected CHFunknown EF with volume overload Diabetes mellitus type 2, [id number]-eexpubx-ijilardry Hypertension History of CVA Continue IV steroids, vitamin supplementation, wean oxygen as tolerated Pulmonology consulted, continue baricitinib. Received Regeneron at stand-alone ED on day of admission Inflammatory markers worsening Patient reports feeling about the same, he does look slightly more comfortable A. fib, continue patient's home metoprolol and Eliquis Patient with some volume overload, has not been taking his Lasix at home, and has had increased lower extremity edema Continue 40 mg IV Lasix, improving slowly Patient with DM2, noncompliant with diet, states A1c is in the 8s. [id number]-[id number]. Restart Metformin and glimepiride. Patient started on insulin. Steroids are definitely contributing to hyperglycemia Patient with microcytic anemia, he had low his report no prior knowledge/diagnoses. Iron studies ordered -revealed significantly depleted iron levels. s/p 2 doses of IV iron Patient has been on Eliquis and aspirin 81 mg for a few years, which family states is under instruction by his physician. Over the last week or so, possibly longer, patient has been taking full dose aspirin along with Eliquis recommend patient have formal GI f/u as outpateint and get a colonscopy to r/o occult GI bleed VTE: eliquis Code: full Dispo: Anticipate discharge home in 1-2 days if improves, he is high risk morbidity/mortality from COVID Time Spent Managing Pts Care (In Minutes): 35
--- NOTE | 2021-04-27 07:30 | RAD REPORT ---
EXAM DESCRIPTION: RAD - Chest Single View - 04/27/2021 5:32 am CLINICAL HISTORY: hypoxia, covid, eval pulm edema COMPARISON: April 26, April 24 TECHNIQUE: AP portable chest image was obtained 04/27/2021 5:32 am . FINDINGS: Lung volumes are again noted to be low. Upper lung field opacification appears worse than on the prior examination. This may still be due to the lower lung volume on today's examination. Heck vee, progressive disease is of concern and continued monitoring is needed. Heart and vasculature are normal. No measurable pleural effusion and no pneumothorax. No acute bony abnormality seen. No acute aortic findings suspected. IMPRESSION: Stable to slightly worse bilateral COVID-19 pneumonia findings. Increased opacification the lung vazquez could be due to the more shallow inspiration on today's study . Patient can be monitored for worsening disease.
[2021-04-27] MEDS: BARICITINIB 2 MG TABLET PO SCH (08:27)
[2021-04-27] MEDS: ZINC SULFATE 220 MG CAP PO SCH (08:28)
[2021-04-27] MEDS: GLIMEPIRIDE 2 MG TABLET PO SCH (08:28)
[2021-04-27] MEDS: METOPROLOL TAR 50 MG TAB PO SCH ×2 (08:28→20:42)
[2021-04-27] MEDS: AMILORIDE HCL 5 MG TABLET PO SCH ×2 (08:28→20:42)
[2021-04-27] MEDS: VITAMIN D 1000 UNIT TAB PO SCH (08:28)
[2021-04-27] MEDS: THIAMINE HCL 100 MG TABLET PO SCH (08:30)
[2021-04-27] MEDS: METFORMIN HCL 500 MG TAB PO SCH ×2 (08:30→17:05)
[2021-04-27] MEDS: APIXABAN 5 MG TABLET PO SCH ×2 (08:30→20:43)
[2021-04-27] MEDS: ASPIRIN EC 81 MG TAB PO SCH (08:30)
[2021-04-27] MEDS: INSULIN -REGULAR HUMAN 50 UNIT/0.5 ML ML SQ SCH ×4 (08:31→20:44)
[2021-04-27] MEDS: FUROSEMIDE 40 MG/4 ML VIAL IV SCH (08:32)
[2021-04-27] MEDS: DOXYCYCLINE 100 MG CAP PO SCH ×2 (08:36→20:42)
[2021-04-27] MEDS: CEFTRIAXONE 1 GM/NS 50 ML 1 GM/50 ML BAG IV SCH (08:44)
[2021-04-27] MEDS ORDERED: FUROSEMIDE 40 MG TABLET PO SCH (09:00)
[2021-04-27] MEDS: ONDANSETRON 4 MG/2 ML VIAL IV PRN (10:09)
[2021-04-27] MEDS: BENZONATATE 100 MG CAP PO PRN (10:43)
--- NOTE | 2021-04-27 12:24 | P.PN ---
Subjective Date of Service: 04/27/21 Primary Care Provider: Out of town Chief Complaint: COVID-19 pneumonia Patient is subjectively feeling better although is becoming more hypoxic chest x-ray looks worse Review of Systems Unremarkable Respiratory: Shortness of Breath Physical Examination - Vital Signs Temperature: 97 F Blood Pressure: 152/89 Pulse: 108 Respirations: 20 Pulse Ox (%): 92 - Physical Exam General: Alert, Oriented x3, Cooperative Assessment & Plan - Problems (Diagnosis) (1) 2019 novel coronavirus-infected pneumonia (NCIP) Current Visit: Yes Status: Acute Plan: Patient is worsening his x-ray looks worse oxygen requirements increasing is currently on Barcitinib and steroid antibiotics were added labs reviewed currently on 6 L of nasal cannula oxygen add Erichuvia
[2021-04-27] MEDS: SITAGLIPTIN PHOS 100 MG TAB PO SCH (12:35)
[2021-04-27] MEDS: INSULIN GLARGINE 100 UNITS/ML SQ SCH (20:43)
[2021-04-27] MEDS: ATORVASTATIN 40 MG TAB PO SCH (20:43)
[2021-04-28 05:11] LABS: Absolute Lymphocytes (CBC) 0.3 K/uL (0.7-4.9); Hematocrit 33.9 % (39.6-49.0); Lymphocytes % 7.4 % (15.3-44.8); MPV 8.4 fL (7.6-11.3); RBC Red Blood Cell Count 4.75 M/uL (4.33-5.43)
[2021-04-28 05:26] LABS: Bilirubin Total 0.4 mg/dL (0.2-1.0); Ferritin 755.2 ng/mL (26-388); Magnesium 2.8 mg/dL (1.8-2.4); Protein, Total 6.4 g/dL (6.4-8.2)
[2021-04-28] MEDS: FUROSEMIDE 40 MG/4 ML VIAL IV SCH (08:48)
[2021-04-28] MEDS: THIAMINE HCL 100 MG TABLET PO SCH (08:48)
[2021-04-28] MEDS: ZINC SULFATE 220 MG CAP PO SCH (08:48)
[2021-04-28] MEDS: ASPIRIN EC 81 MG TAB PO SCH (08:49)
[2021-04-28] MEDS: VITAMIN D 1000 UNIT TAB PO SCH (08:49)
[2021-04-28] MEDS: METFORMIN HCL 500 MG TAB PO SCH ×2 (08:49→16:42)
[2021-04-28] MEDS: GLIMEPIRIDE 2 MG TABLET PO SCH (08:49)
[2021-04-28] MEDS: METOPROLOL TAR 50 MG TAB PO SCH ×2 (08:49→21:00)
[2021-04-28] MEDS: SITAGLIPTIN PHOS 100 MG TAB PO SCH (08:49)
[2021-04-28] MEDS: APIXABAN 5 MG TABLET PO SCH ×2 (08:49→21:00)
[2021-04-28] MEDS: INSULIN -REGULAR HUMAN 50 UNIT/0.5 ML ML SQ SCH ×4 (08:50→21:00)
[2021-04-28] MEDS: DOXYCYCLINE 100 MG CAP PO SCH ×2 (08:50→21:02)
[2021-04-28] MEDS: BARICITINIB 2 MG TABLET PO SCH (08:50)
[2021-04-28] MEDS: AMILORIDE HCL 5 MG TABLET PO SCH ×2 (08:50→21:00)
[2021-04-28] MEDS: CEFTRIAXONE 1 GM/NS 50 ML 1 GM/50 ML BAG IV SCH (09:38)
--- NOTE | 2021-04-28 12:40 | ECHO ---
HEIGHT: 6 ft 0 in WEIGHT: 260 lb 0 oz DATE OF STUDY: 04/27/[address]: Chris Villegas MD 2-DIMENSIONAL: YES M.MODE: YES DOPPLER: YES COLOR FLOW: YES TDS: YES PORTABLE: DEFINITY: BUBBLE STUDY: DIAGNOSIS: CHEST PAIN CARDIAC HISTORY: CATHERIZATION: SURGERY: PROSTHETIC VALVE: PACEMAKER: MEASUREMENTS (cm) DIASTOLIC (NORMALS) SYSTOLIC (NORMALS) IVSd 1.5 (0.6-1.2) LA Diam 4.5 (1.9-4.0) LVEF 69% LVIDd 4.7 (3.5-5.7) LVIDs 2.9 (2.0-3.5) %FS % LVPWd 1.4 (0.6-1.2) Ao Diam (2.0-3.7) 2 DIMENSIONAL ASSESSMENT: RIGHT ATRIUM: NORMAL LEFT ATRIUM: DILATED RIGHT VENTRICLE: NORMAL LEFT VENTRICLE: LEFT VENTRICULAR HYPERTROPHY TRICUSPID VALVE: NORMAL MITRAL VALVE: MITRAL ANNULAR CALCIFICATION PULMONIC VALVE: NORMAL AORTIC VALVE: SCLEROSIS PERICARDIAL EFFUSION: NONE AORTIC ROOT: NORMAL LEFT VENTRICULAR WALL MOTION: NORMAL DOPPLER/COLOR FLOW: MILD TRICUSPID REGURGITATION. NORMAL RIGHT VENTRICULAR SYSTOLIC PRESSURE. COMMENTS: LEFT ATRIAL ENLARGEMENT. LEFT VENTRICULAR HYPERTROPHY. NORMAL EJECTION FRACTION. MITRAL ANNULAR CALCIFICATION. AORTIC SCLEROSIS. TECHNOLOGIST: BRUCE FUENTES
[2021-04-28] MEDS: METHYLPREDNISOLONE 125 MG INJ IV SCH (13:05)
--- NOTE | 2021-04-28 15:42 | P.PN ---
Subjective Date of Service: 04/28/21 Primary Care Provider: Out of town Chief Complaint: COVID-19 pneumonia Patient reports significant improvement in shortness of breath. Oxygen weaned down to 3 L with good oxygen saturation. Physical Examination - Vital Signs Temperature: 97.7 F Blood Pressure: 122/92 Pulse: 82 Respirations: 24 Pulse Ox (%): 96 - Physical Exam General: Alert, In no apparent distress, Oriented x3 HEENT: Mucous membr. moist/pink Neck: JVD not distended Respiratory: Other (Nonlabored breathing) Cardiovascular: No edema, Regular rate/rhythm Gastrointestinal: Soft and benign, Non-distended Musculoskeletal: No swelling Integumentary: No rashes, No cyanosis Neurological: Normal strength at 5/5 x4 extr Assessment And Plan - Plan Physical exam GEN: Alert, oriented, NAD HEENT: Normal conjunctiva, sclera anicteric CV: Irregularly irregular rhythm. Pedal edema. Pulm: Nonlabored breathing. ABD: Soft, nontender, nondistended MSK: No joint tenderness/swelling Integumentary: No rashes/lesions Neuro: Normal speech, normal affect Problem List Acute hypoxic respiratory failure secondary to COVID-19 pneumonia Atrial fibrillation (chronic) with rapid ventricular response on chronic anticoagulation therapy Suspected CHFunknown EF with volume overload Diabetes mellitus type 2, [id number]-urdaabjbi Hypertension History of CVA [place] Continue IV steroids, vitamin supplementation. Continue to wean oxygen as tolerated Pulmonology is following. Patient on baricitinib. Received Regeneron at stand- alone ED on day of admission Inflammatory markers trending down. Continue home dose metoprolol and Eliquis for AFib. Hold Lasix for today due to rising creatinine. Patient with DM2, noncompliant with diet, states A1c is in the 8s. [id number]-etwuodu-ewxwxwgof. Continue Metformin and glimepiride and on insulin. Steroids are contributing to hyperglycemia Patient with microcytic anemia. Iron studies reveal significantly depleted iron levels. continue IV iron. Patient has been on Eliquis and aspirin 81 mg for a few years, which family states is under instruction by his physician. Over the last week or so, possibly longer, patient has been taking full dose aspirin along with Eliquis recommend patient have formal GI f/u as outpateint and get a colonscopy to r/o occult GI bleed. Arrange for home oxygen.
[2021-04-28] MEDS: ONDANSETRON 4 MG/2 ML VIAL IV PRN (16:48)
[2021-04-28] MEDS: ATORVASTATIN 40 MG TAB PO SCH (21:00)
[2021-04-28] MEDS: INSULIN GLARGINE 100 UNITS/ML SQ SCH (21:00)
[2021-04-29] MEDS: METHYLPREDNISOLONE 125 MG INJ IV SCH
[2021-04-29 04:43] LABS: Absolute Lymphocytes (CBC) 0.2 K/uL (0.7-4.9); Basophils % 0.1 % (0-1.3); Hematocrit 33.2 % (39.6-49.0); Lymphocytes % 2.9 % (15.3-44.8); RBC Red Blood Cell Count 4.68 M/uL (4.33-5.43)
[2021-04-29 05:22] LABS: Albumin 2.1 g/dL (3.4-5.0); Bilirubin Total 0.4 mg/dL (0.2-1.0); C-Reactive Protein 83.3 mg/L (<3.00); Magnesium 2.5 mg/dL (1.8-2.4); Potassium 5.1 mmol/L (3.5-5.1); Protein, Total 6.3 g/dL (6.4-8.2)
[2021-04-29 05:42] LABS: Blood Morphology Comment NOT SEEN (NOT SEEN); Platelet Estimate ADEQ
[2021-04-29] MEDS: BENZONATATE 100 MG CAP PO PRN (06:19)
--- NOTE | 2021-04-29 07:45 | RAD REPORT ---
EXAM DESCRIPTION: Igor Single View04/29/2021 5:53 am CLINICAL HISTORY: Hypoxia COMPARISON: April 27, 2021 FINDINGS: Minimal improvement in the bilateral pulmonary opacities which are worse on the left. Heart remains enlarged IMPRESSION: Minimal improvement in the bilateral pulmonary opacities which may represent pneumonia a nd/or pulmonary edema
[2021-04-29] MEDS: AMILORIDE HCL 5 MG TABLET PO SCH (08:09)
[2021-04-29] MEDS: APIXABAN 5 MG TABLET PO SCH (08:09)
[2021-04-29] MEDS: BARICITINIB 2 MG TABLET PO SCH (08:09)
[2021-04-29] MEDS: ZINC SULFATE 220 MG CAP PO SCH (08:10)
[2021-04-29] MEDS: METFORMIN HCL 500 MG TAB PO SCH (08:10)
[2021-04-29] MEDS: ASPIRIN EC 81 MG TAB PO SCH (08:10)
[2021-04-29] MEDS: GLIMEPIRIDE 2 MG TABLET PO SCH (08:10)
[2021-04-29] MEDS: METOPROLOL TAR 50 MG TAB PO SCH (08:10)
[2021-04-29] MEDS: SITAGLIPTIN PHOS 100 MG TAB PO SCH (08:10)
[2021-04-29] MEDS: DOXYCYCLINE 100 MG CAP PO SCH (08:10)
[2021-04-29] MEDS: VITAMIN D 1000 UNIT TAB PO SCH (08:10)
[2021-04-29] MEDS: THIAMINE HCL 100 MG TABLET PO SCH (08:10)
[2021-04-29] MEDS: INSULIN -REGULAR HUMAN 50 UNIT/0.5 ML ML SQ SCH ×2 (08:11→12:38)
[2021-04-29] MEDS: CEFTRIAXONE 1 GM/NS 50 ML 1 GM/50 ML BAG IV SCH (08:11)
--- NOTE | 2021-04-29 08:30 | P.PN ---
Subjective Date of Service: 04/29/21 Primary Care Provider: Out of town Chief Complaint: COVID-19 pneumonia Feeloing dolores [id number] declining Review of Systems Respiratory: Shortness of Breath Physical Examination - Vital Signs Temperature: 97.0 F Blood Pressure: 138/76 Pulse: 79 Respirations: 22 Pulse Ox (%): 91 - Physical Exam General: Alert, In no apparent distress, Oriented x3 Assessment & Plan - Problems (Diagnosis) (1) 2019 novel coronavirus-infected pneumonia (NCIP) Current Visit: Yes Status: Acute Plan: Improving, O2 requirement less than 4 l, reduce steroids plan for discharge am on steriods/ FAmily and patient aware of microcytic anemia and needs [place]ADISON with GI/ DC antibiotics reduce steroids plan for DC
[2021-04-29 08:55] VITALS: O2SAT 91
[2021-04-29] MEDS ORDERED: MAGNES/ALUMIN/SIMET 30ML UCUP PO PRN (08:57)
[2021-04-29] MEDS ORDERED: predniSONE 20 MG TAB PO SCH (09:00)
[2021-04-29] MEDS: ONDANSETRON 4 MG/2 ML VIAL IV PRN (09:12)
[2021-04-29 13:07] VITALS: BP 133/78; TEMP 96.5
--- NOTE | 2021-04-29 13:22 | P.DS ---
Admission Date: 04/24/21 Discharge Date: 04/29/21 Primary Care Provider: Out of town Disposition: ROUTINE DISCHARGE Discharge Condition: FAIR Reason for Admission: COVID-19 pneumonia Brief History of Present Illness: 65-year-old male with history of diabetes mellitus type 2, hypertension, atrial fibrillation on chronic anticoagulation therapy presents emergency department for shortness of breath. Patient reports testing positive for Covid on 04/20/2021, received Regeneron yesterday at stand-alone emergency department. Patient with worsening shortness of breath found to be hypoxic on room air with saturations around 85%. Patient was evaluated in the emergency department labs were significant for white blood cell count 3.7 hemoglobin 9.1 hematocrit 35.8 troponin 0 0.07 C-reactive protein 144, patient requiring approximately 5 L per nasal cannula at this time to obtain saturations greater than 90%. ED provider wishes to admit for COVID-19 pneumonia, volume overload. Hospital Course: Problem List Acute hypoxic respiratory failure secondary to COVID-19 pneumonia Atrial fibrillation (chronic) with rapid ventricular response on chronic anticoagulation therapy Suspected CHFunknown EF with volume overload Diabetes mellitus type 2, [id number] Hypertension History of CVA [place] Patient admitted to the medical floor and treated with IV steroid, vitamin supplementation and zinc supplementation. He was needing oxygen up to 6 L by nasal cannula this trended down as his respiratory status improved with treatment. He is currently tolerating 3 L at rest and with ambulation with oxygen saturation greater than 90%. Patient treated with baricitinib. He received Regeneron at a stand-alone ED on the day of admission Inflammatory markers monitored trended down. Continued home dose metoprolol and Eliquis for AFib. He was treated briefly with lasix but Lasix was later discontinued due to rising creatinine. Patient with DM2, noncompliant with diet, states A1c is in the 8s. [id number]. Continued Metformin and glimepiride and added insulin. Steroids contributed to hyperglycemia Patient with microcytic anemia. Iron studies revealed significantly depleted iron levels. He received IV iron infusions. Patient has been on Eliquis and aspirin 81 mg for a few years. Over the last week or so, possibly longer, patient has been taking full dose aspirin along with Eliquis Patient recommended to follow up with GI for evaluation for called occult GI bleed. Aspirin decreased to 81 mg daily on discharge. Home oxygen has been arranged. Patient is deemed clinically stable for discharge. Vital Signs/Physical Exam: Temp Pulse Resp BP Pulse Ox 96.5 F L 87 18 133/78 88 L 04/29/21 12:00 04/29/21 12:00 04/29/21 12:00 04/29/21 12:00 04/29/21 12:00 General: Alert, In no apparent distress, Oriented x3 HEENT: Mucous membr. moist/pink Neck: JVD not distended Respiratory: Other (Nonlabored breathing) Cardiovascular: No edema, Regular rate/rhythm, Normal S1 S2 Gastrointestinal: Normal bowel sounds, Soft and benign, Non-distended Musculoskeletal: No swelling Integumentary: No rashes Neurological: Normal speech, Normal strength at 5/5 x4 extr Laboratory Data at Discharge: WBC 5.90 K/uL (4.3-10.9) D 04/29/21 04:34 Hgb 10.3 g/dL (13.6-17.9) L 04/29/21 04:34 Hct 33.2 % (39.6-49.0) L 04/29/21 04:34 Plt Count 190 K/uL (152-406) 04/29/21 04:34 PT 15.2 SECONDS (9.5-12.5) H 04/24/21 18:51 INR 1.32 04/24/21 18:51 APTT 35.4 SECONDS (24.3-36.9) 04/24/21 18:51 Sodium 140 mmol/L (136-145) 04/29/21 04:34 Potassium 5.1 mmol/L (3.5-5.1) 04/29/21 04:34 BUN 63 mg/dL (7-18) H 04/29/21 04:34 Creatinine 1.19 mg/dL (0.55-1.3) 04/29/21 04:34 Glucose 286 mg/dL (74-106) H 04/29/21 04:34 Magnesium 2.5 mg/dL (1.8-2.4) H 04/29/21 04:34 Total Bilirubin 0.4 mg/dL (0.2-1.0) 04/29/21 04:34 AST 22 U/L (15-37) 04/29/21 04:34 ALT 28 U/L (12-78) 04/29/21 04:34 Alkaline Phosphatase 50 U/L (45-117) 04/29/21 04:34 Troponin I 0.03 ng/mL (0.0-0.045) 04/25/21 08:49 Triglycerides 81 mg/dL (<150) 04/25/21 02:20 Cholesterol 68 mg/dL (<200) 04/25/21 02:20 HDL Cholesterol 28 mg/dL (40-60) L 04/25/21 02:20 Cholesterol/HDL Ratio 2.43 04/25/21 02:20 Lipase 82 U/L (73-393) 04/24/21 18:51 Home Medications: Amiloride HCl 5 mg PO BID 04/25/21 Apixaban [Eliquis] 5 mg PO BID 04/25/21 Furosemide [Lasix] 20 mg PO DAILY 04/25/21 Glimepiride [Amaryl] 2 mg PO DAILY 04/25/21 Levothyroxine Sodium [Synthroid] 50 mcg PO DAILY 04/25/21 Metformin HCl 1,000 mg PO BID 04/25/21 Metoprolol Tartrate 100 mg PO BID 04/25/21 Pantoprazole Sodium [Protonix] 40 mg PO DAILY 04/25/21 Terazosin HCl 10 mg PO DAILY 04/25/21 hydroCHLOROthiazide [Hydrochlorothiazide] 25 mg PO DAILY 04/25/21 Aspirin [Aspirin EC] 81 mg PO DAILY #30 tablet. 04/29/21 Benzonatate [Tessalon Perle*] 100 mg PO TID PRN #30 cap 04/29/21 Cholecalciferol (Vitamin D3) [Vitamin D3] 4,000 unit PO DAILY #60 capsule 04/29/21 Sitagliptin Phosphate [Januvia*] 100 mg PO DAILY #30 tab 04/29/21 Thiamine HCl [Vitamin B-1*] 200 mg PO DAILY #60 tablet 04/29/21 Zinc Sulfate [Zinc Sulfate*] 220 mg PO DAILY #30 cap 04/29/21 predniSONE [Prednisone*] 20 mg PO BID #21 tab 04/29/21 New Medications: Aspirin [Aspirin EC] 81 mg PO DAILY #30 tablet. Sitagliptin Phosphate [Januvia*] 100 mg PO DAILY #30 tab predniSONE [Prednisone*] 20 mg PO BID #21 tab Benzonatate [Tessalon Perle*] 100 mg PO TID PRN #30 cap PRN Reason: Cough Thiamine HCl [Vitamin B-1*] 200 mg PO DAILY #60 tablet Cholecalciferol (Vitamin D3) [Vitamin D3] 4,000 unit PO DAILY #60 capsule Zinc Sulfate [Zinc Sulfate*] 220 mg PO DAILY #30 cap Diet: ADA Activity: Ad allen Followup: [id number] [Primary Care Provider] - 1-2 Weeks Time spent managing pt's care (in minutes): 38
[2021-04-30] MEDS ORDERED: PANTOPRAZOLE 40MG TABLET PO SCH (06:30)
== END 2021-04-29 14:30 | disposition home or self-care (01) | DRG 177 ==
LOC: ER 18:17 → ERHOLD 19:45 → 4TH 23:04 → 3RD-ICU 04-25 15:40
PROVIDERS: ADMIT Hospitalist; ATTEND Internal Medicine
PROC: XW0DXM6 Introduction of Baricitinib into Mouth and Pharynx, External Approach, New Technology Group 6 (ICD-10-PCS; principal; 2021-04-28)
DX: U07.1 COVID-19 (principal); J12.82 Pneumonia due to coronavirus disease 2019; J96.01 Acute respiratory failure with hypoxia; I50.32 Chronic diastolic (congestive) heart failure; I48.20 Chronic atrial fibrillation, unspecified; N17.9 Acute kidney failure, unspecified; I11.0 Hypertensive heart disease with heart failure; K21.9 Gastro-esophageal reflux disease without esophagitis; E03.9 Hypothyroidism, unspecified; E88.81 Metabolic syndrome and other insulin resistance; E09.65 Drug or chemical induced diabetes mellitus with hyperglycemia; D50.9 Iron deficiency anemia, unspecified; T38.0X5A Adverse effect of glucocorticoids and synthetic analogues, initial encounter; Z86.73 Personal history of transient ischemic attack (TIA), and cerebral infarction without residual deficits; Z79.84 Long term (current) use of oral hypoglycemic drugs; Z79.01 Long term (current) use of anticoagulants; Z79.82 Long term (current) use of aspirin; Z79.890 Hormone replacement therapy; Z79.899 Other long term (current) drug therapy; Z90.49 Acquired absence of other specified parts of digestive tract; Z91.11 Patient's noncompliance with dietary regimen; Z79.52 Long term (current) use of systemic steroids
CPT/HCPCS: 36415; 71045; 80048; 80053; 80061; 80076; 81003; 81015; 82728; 82947; 83036; 83540; 83605; 83690; 83735; 83880; 84145; 84439; 84443; 84466; 84484; 85025; 85379; 85610; 85730; 86140; 87040; 87070; 87086; 87088; 87205; 93005; 93306; 94010; 94760; 97161; 99285; J0696; J1815; J1940; J2270; J2405; J2916; J2920; J2930; J7512; U0003